=== PATIENT | female | born 1950 | race Caucasian/White ===

== ENCOUNTER 2019-03-13 05:50 | Day surgery (SDC) | payer MEDICARE, MEDICAID ==
[2019-03-13] MEDS ORDERED: LIDOCAINE 2% MDV (20MG/ML) 20ML VIAL IV ONE (05:51)
[2019-03-13] MEDS ORDERED: MIDAZOLAM HCL 2MG/2ML VIAL IV ONE (05:51)
[2019-03-13] MEDS ORDERED: PROPOFOL 10 MG/ML VIAL IV ONE (05:51)
[2019-03-13] MEDS ORDERED: ALFENTANIL HCL 500 MCG/1ML, 2ML AMP IV ONE (05:51)
[2019-03-13] MEDS ORDERED: CEFAZOLIN 2 Gram 2 GM/50 ML BAG IVPB ONE (06:00)
[2019-03-13] MEDS ORDERED: METOCLOPRAMIDE 10 MG TABLET PO ONE (06:00)
[2019-03-13] MEDS ORDERED: MECLIZINE 25 MG TABLET PO ONE (06:00)
[2019-03-13] MEDS ORDERED: HYDROMORPHONE PF 2MG/ML AMP 0.008 MG in 0.9 % SODIUM CHLORIDE 10ML VIA 0.996 ML IV ONE ×4 (06:00)
[2019-03-13] MEDS ORDERED: ACETAMINOPHEN 1,000 MG/100 ML BTL IVPB ONE (06:00)
[2019-03-13] MEDS ORDERED: HYDROMORPHONE HCL 0.8 GM in 0.9 % SODIUM CHLORIDE 10ML VIA 40 ML IV ONE (06:00)
[2019-03-13] MEDS ORDERED: FAMOTIDINE 20MG TABLET PO ONE (06:00)
--- NOTE | 2019-03-13 06:23 | History and Physical - [place] ---
CHIEF COMPLAINT/HISTORY OF CHIEF COMPLAINT: This patient presents with a history of post lumbar laminectomy radiculopathy. A spine infusion system was implanted roughly 10-15 years ago at another location. Management and refills have been handled through this clinical since 07/04/16. Her current infusion is Hydromorphone. Over the last number of refills battery depletion was identified. She is here for battery replacement on an outpatient basis. PAST MEDICAL HISTORY: Hypothyroidism, seizure disorder and sleep disturbance. PAST SURGICAL HISTORY: Craniotomy, pump implant and multiple lumbar laminectomies. MEDICATIONS ON ADMISSION: List to be provided. ALLERGIES: List to be provided. FAMILY/PSYCHOSOCIAL HISTORY: Social history - Caffeine. Family history - Diabetes, hypothyroidism, and hypertension. SYSTEMS REVIEW: The patient is appropriate in no acute distress. The remainder of the systems review is positive for glasses, dentures, headaches, cerebrovascular disease, bladder dysfunction, renal disease, degenerative arthritis, and fibromyalgia. PHYSICAL EXAMINATION: Height is 5'8", weight is 250. No vital signs. HEENT: Within normal limits. LUNGS: Coarse and bronchitic. HEART: Rapid and regular. ABDOMEN: The pump is located in the left lower abdominal quadrant. The incisional site is intact. NEUROLOGIC: Cranial nerves would appear to be intact. Motor and sensory abnormalities to the upper and lower extremities noted. IMPRESSION: 1. POST LUMBAR LAMINECTOMY SYNDROME, ICD-10 CODE M96.1 WITH RADICULOPATHY, ICD- 10 CODE M54.16 AND M54.17. 2. IMPLANTED SPINAL INFUSION SYSTEM USING HYDROMORPHONE. PLAN: This patient is here on an outpatient basis for a battery change to her pump. No parameter changes will be made. JOB NUMBER: [id number] [facility]
[2019-03-13] MEDS ORDERED: 0.9 % SODIUM CHLORIDE 1000ML 1,000 ML IV ONE (06:45)
[2019-03-13] MEDS ORDERED: LIDOCAINE 1% W/EPI 1:200,000 MPF 30ML SQ ONE (09:12)
[2019-03-13] MEDS ORDERED: BUPIVACAINE 0.5% W/EPI MPF 30 ML VIAL SQ ONE (09:12)
--- NOTE | 2019-03-14 09:42 | Operative Note ---
DATE OF SURGERY: 03/13/2019 PREOPERATIVE DIAGNOSES: 1. Post lumbar laminectomy central, ICD10 code M96.1 with lumbar radiculopathy, ICD10 code M54.16 and M54.17. 2. Implanted spinal fusion system hydromorphone battery depletion. OPERATION: Fluoroscopic-guided incision, subsequent, removal, and replacement of indwelling programmable pump right abdominal quadrant. SURGEON: Tonny Heredia DO ANESTHESIA: Local with sedation. ANESTHESIA PROVIDER: Addis Stock INDICATION: This patient presents with a history of intractable lumbar radiculopathy managed by intrathecal spinal infusion system with hydromorphone. Over the last number of replacements, battery depletion noted. She is here for battery change. PROCEDURE: Intravenous line, vital sign monitoring, IV sedation. Prepped and draped sterile technique. Patient positioned supine. The right lower abdominal quadrant prepped and draped sterile technique. Skin infiltrated with local. Incision made and subcutaneous dissection was conducted to the pump pouch. The pouch was opened, the pump exteriorized and from the indwelling catheter. A new pump prefilled hydromorphone 25 mg/mL placed onto the field. The pump was then interfaced with the existing catheter. Catheter by way of an Ethibond suture was tightened to the pump itself. The pump was then placed into the pouch after antibiotic irrigation, secured to the posterior fascia with a nonabsorbable suture, and then the incision was closed using 2-0 Vicryl and job for skin. Appropriate dressings placed. The pump was then programmed back to the original parameters. She was transported to the recovery room stable. No side effects from procedure or sedation. She had demonstrated no side effects during the technique. DISCHARGE INSTRUCTIONS: 1. Sites to remain clean and dry. No showering or bathing in any way that would disrupt dressings. 2. Standard medications resumed including the antibiotic Levaquin 500 mg once a day for 14 days. 3. Office to contact the patient in 12-24 hours to set up a time in 7-10 days to evaluate the sites. Until then, she is to keep her activities low. All instructions provided. Numbers to contact if problems given. Spinal opioid side effects have been reviewed and discussed. [facility]
== END 2019-03-13 09:50 | disposition home or self-care (01) ==
LOC: SUR 05:50
PROVIDERS: ATTEND Pain Medicine Interventional Pain Medicine
DX: M54.16 Radiculopathy, lumbar region (principal); M54.17 Radiculopathy, lumbosacral region; E78.00 Pure hypercholesterolemia, unspecified; R56.9 Unspecified convulsions; M79.7 Fibromyalgia; G47.33 Obstructive sleep apnea (adult) (pediatric); R60.9 Edema, unspecified; N18.3 Chronic kidney disease, stage 3 (moderate)
CPT/HCPCS: 62362; 01936; 62367; J0690; J7030